=== PATIENT | male | born 1960 | race Caucasian/White ===

== ENCOUNTER 2018-08-16 10:33 | Emergency (ER) | payer MEDICAID, OTHER ==
[~2018-08-16] VITALS: Ht 167.6 cm; Wt 81.6 kg
[2018-08-16 12:30] VITALS: BP 130/69
== END 2018-08-16 13:39 | disposition home or self-care (01) ==
LOC: ER 10:41 → EDBD 10:41 → ER 13:38
DX: M79.605 Pain in left leg (principal); M79.604 Pain in right leg; K21.9 Gastro-esophageal reflux disease without esophagitis; E78.5 Hyperlipidemia, unspecified; I10 Essential (primary) hypertension
CPT/HCPCS: 93970

== ENCOUNTER 2018-09-04 09:47 | Emergency (ER) | payer MEDICAID ==
[~2018-09-04] VITALS: Ht 170.2 cm; Wt 74.8 kg
[2018-09-04 10:29] VITALS: BP 146/85
[2018-09-04 10:41] LABS: Basophils # (auto) 0 uL; Basophils % (auto) 0.2 % (0.0-2.0); Eosinophils # (auto) 0 uL; Eosinophils % (auto) 0.4 % (0.0-7.0); Hematocrit 36.6 % (41.0-53.0); Hemoglobin 12.8 g/dL (13.5-17.5); Lymphocytes # (auto) 0.4 uL; Lymphocytes % (auto) 9.3 % (10.0-50.0); Mean Corpuscular Hemoglobin 33.2 pg (28.0-32.0); Mean Corpuscular Hgb Conc. 34.8 g/dL (32.0-36.0); Mean Corpuscular Volume 95.2 fL (80.0-100.0); Monocytes # (auto) 0.4 uL; Neutrophils # (auto) 3.6 uL; Neutrophils % (auto) 80.1 % (37.0-80.0); Platelet Count (auto) 176 10^3/uL (140-450); Red Blood Cells 3.85 10^6/uL (4.5-5.90); Red Cell Distribution Width 13.3 % (11.8-14.3); White Blood Cell 4.5 10^3/uL (4.4-10.8)
[2018-09-04 10:54] LABS: Alanine Aminotransferase 111 U/L (16-61); Albumin 3.9 g/dL (3.4-5.0); Anion Gap 9 (5-15); Aspartate Aminotransferase 38 U/L (15-37); BUN/Creatinine Ratio 9.5; Blood Urea Nitrogen 8 mg/dL (7-18); Calcium 8.6 mg/dL (8.5-10.1); Carbon Dioxide 27 mmol/L (21-32); Chloride 89 mmol/L (98-107); GFR African American 120 mL/min; GFR Non-African American 99 mL/min; Glucose 96 mg/dL (74-106); Potassium 4.6 mmol/L (3.5-5.1); Sodium 125 mmol/L (136-145)
[2018-09-04 10:56] LABS: Alkaline Phosphatase 100 U/L (45-117); Bilirubin, Total 0.6 mg/dL (0.2-1.0); Total Protein 7.1 g/dL (6.4-8.2)
[2018-09-04 11:36] LABS: INR 1.05 (0.9-1.15); Partial Thromboplastin Time 31.8 sec (23.64-32.05)
== END 2018-09-04 12:43 | disposition home or self-care (01) ==
LOC: ER 09:47
DX: M25.562 Pain in left knee (principal); M25.561 Pain in right knee; R07.9 Chest pain, unspecified; R51 Headache; K21.9 Gastro-esophageal reflux disease without esophagitis; E78.5 Hyperlipidemia, unspecified; I10 Essential (primary) hypertension
CPT/HCPCS: 36415; 70450; 71045; 72170; 73560; 80053; 84484; 85025; 85610; 85730; 93005; 94761; 99284; J7030